=== PATIENT | female | born 1975 | race Caucasian/White ===

== ENCOUNTER 2017-02-05 23:49 | Emergency (ER) | payer SELFPAY ==
[~2017-02-05] VITALS: Ht 160 cm; Wt 119.0 kg
[~2017-02-05 23:49] MED LIST: CARAFATE100 MG/ML PO; CLINDAMYCIN HC300 MG PO; LORTAB 5-325 M1 EACH PO; NORCO 5/3251 TABLET PO; PROTONIX40 MG PO; ZANTAC150 MG PO; ZOFRAN ODT8 MG PO
[2017-02-06] MEDS ORDERED: MOUTH SORE15 ML MM (01:25)
[2017-02-06 02:01] VITALS: BP 172/89
== END 2017-02-06 02:02 | disposition home or self-care (01) ==
LOC: EME 23:49 → EXP 23:49
DX: J02.8 Acute pharyngitis due to other specified organisms (principal); Z87.891 Personal history of nicotine dependence
CPT/HCPCS: 87651 90; 99281; 99283

== ENCOUNTER 2017-10-09 14:43 | Emergency (ER) | payer OTHER ==
[~2017-10-09] VITALS: Ht 160 cm; Wt 117.8 kg
[~2017-10-09 14:43] MED LIST changes: +MOUTH SORE15 ML MM
[2017-10-09] MEDS ORDERED: NORCO 5/3251 TABLET PO (17:04)
[2017-10-09] MEDS ORDERED: MEDROL DOSEPAK4 MG PO (17:04)
[2017-10-09] MEDS ORDERED: MOTRIN600 MG PO (17:04)
[2017-10-09 18:14] VITALS: BP 112/63
== END 2017-10-09 18:16 | disposition home or self-care (01) ==
LOC: EME 14:43
DX: M75.51 Bursitis of right shoulder (principal); G89.29 Other chronic pain; Z87.891 Personal history of nicotine dependence
CPT/HCPCS: 99281; 99284; J1885

== ENCOUNTER 2018-03-11 23:23 | Emergency (ER) | payer OTHER ==
[~2018-03-11] VITALS: Ht 160 cm; Wt 120.8 kg
[~2018-03-11 23:23] MED LIST changes: +MEDROL DOSEPAK4 MG PO; +MOTRIN600 MG PO
[2018-03-12 00:29] LABS: BASOPHIL (%) 0.5 % (0-1); BASOPHIL COUNT 0.1 K/uL (0-0.1); EOSINOPHIL (%) 3.3 % (0-5); EOSINOPHIL COUNT 0.4 K/uL (0-0.3); HEMATOCRIT 36.2 % (36.0-46.0); IMMATURE GRANULOCYTE (%) 0.6 % (0.0-0.7); LYMPHOCYTE (%) 35.6 % (15-42); LYMPHOCYTE COUNT 3.9 K/uL (1.0-2.8); MCH 26.8 PG (29.0-34.0); MCHC 33.1 G/DL (30.0-36.0); MONOCYTE (%) 4.6 % (3-12); MONOCYTE COUNT 0.5 K/uL (0-0.8); NEUTROPHIL (%) 55.4 % (45-76); NEUTROPHIL COUNT 6.1 K/uL (1.8-6.4); PLATELET COUNT 304 K/uL (156-360); RBC DIS.WIDTH-CV 14.4 % (11.8-14.6); RBC DIS.WIDTH-SD 42.1 % (39-53); RED BLOOD COUNT 4.47 M/uL (3.80-5.20)
[2018-03-12 00:36] LABS: ALBUMIN 3.6 g/dL (3.2-4.8); CHLORIDE 108 mEq/L (99-109); POTASSIUM 3.7 mEq/L (3.7-5.4); SODIUM 140 mEq/L (136-147)
[2018-03-12 00:38] LABS: GLUCOSE 126 mg/dL (70-99); TOTAL PROTEIN 6.3 g/dL (6.4-8.3)
[2018-03-12 00:40] LABS: TOTAL BILIRUBIN 0.2 mg/dL (0.0-1.0)
[2018-03-12 00:42] LABS: ALKALINE PHOSPHATASE 79 IU/L (3-129); GFR ESTIMATE (CALCULATED) > 59 mL/min/
[2018-03-12 00:43] LABS: AST (GOT) 23 IU/L (2-34); UREA NITROGEN (BUN) 19 mg/dL (9-23)
[2018-03-12 00:44] LABS: DIRECT BILIRUBIN 0.1 mg/dL (0.0-0.3)
[2018-03-12 00:45] LABS: ALT (GPT) 58 IU/L (3-49); LIPASE 12 U/L (1.0-51.0)
[2018-03-12 00:48] LABS: TROP-I INTERPRETATION NEGATIVE; TROPONIN-I < 0.01 ng/mL (0.0-0.30)
[2018-03-12 02:05] LABS: TROP-I INTERPRETATION NEGATIVE; TROPONIN-I < 0.01 ng/mL (0.0-0.30)
[2018-03-12] MEDS ORDERED: MAALOX MAXIMUM355 ML PO (02:34)
[2018-03-12] MEDS ORDERED: ZANTAC150 MG PO (02:34)
[2018-03-12 02:45] VITALS: BP 125/69
== END 2018-03-12 02:51 | disposition home or self-care (01) ==
LOC: EME 23:23
PROVIDERS: Emergency Medicine
DX: R07.89 Other chest pain (principal); K21.9 Gastro-esophageal reflux disease without esophagitis; Z87.891 Personal history of nicotine dependence; Z90.49 Acquired absence of other specified parts of digestive tract; Z88.2 Allergy status to sulfonamides; Z88.0 Allergy status to penicillin; Z91.040 Latex allergy status
CPT/HCPCS: 71046; 80048; 80076; 83690; 83880; 84484; 85025; 93005; 99281; 99285; J2765